=== PATIENT | female | born 1940 | race Two or more races ===

== ENCOUNTER 2022-09-16 15:12 | Inpatient (IN) | payer MEDICARE, OTHER ==
[~2022-09-16] VITALS: Ht 152.4 cm; Wt 74.8 kg
[~2022-09-16 15:12] MED LIST: ASPI81TA31 PO; CLOP75TA15 PO; SIMV40TA2 PO
--- NOTE | 2022-09-16 15:35 | NUR ---
Pt ambulatory to room 1A, family with pt.
--- NOTE | 2022-09-16 16:06 | NUR ---
PT IS IN ROOM #1A. DR CHAPPELL EVALUATED THE PT.
[2022-09-16 16:10] LABS: MEAN CORPUSCULAR HEMOGLOBIN 29.9 uug (24.7-32.8); MEAN CORPUSCULAR VOLUME 91.7 fL (75.5-95.3); PLATELET COUNT (AUTO) 215 K/uL (179-408)
[2022-09-16 16:19] LABS: CARBON DIOXIDE 30 mmol/L (21-32); CHLORIDE 105 mmol/L (98-107); CREATININE 1.1 mg/dL (0.6-1.3); GLUCOSE 113 mg/dL (74-106); POTASSIUM 4.2 mmol/L (3.5-5.1); UREA NITROGEN, BLOOD 16 mg/dL (7-18)
[2022-09-16] MEDS ORDERED: IPRATROPIUM BROMIDE 0.5 MG/2.5 ML NEBU ONE (16:39)
[2022-09-16] MEDS ORDERED: ALBUTEROL SULFATE 2.5 MG/3 ML NEBU ONE (16:39)
[2022-09-16] MEDS ORDERED: methylPREDNISolone SOD SUCC 125 MG/2 ML VIAL ONE (16:43)
[2022-09-16] MEDS ORDERED: CEFTRIAXONE /D5W 50ML IVPB **ER PYXIS IV ONE (16:44)
[2022-09-16] MEDS ORDERED: AZITHROMYCIN 500MG/ D5W 250ML IVPB **ER PYXIS ONLY IV ONE (16:44)
[2022-09-16] MEDS ORDERED: IPRATROPIUM BROMIDE 0.5 MG/2.5 ML NEBU NEB ONE (16:45)
[2022-09-16] MEDS ORDERED: AZITHROMYCIN IV 500 MG in IV DEXTROSE 5% 250 ML IV ONE (16:45)
[2022-09-16] MEDS ORDERED: CEFTRIAXONE 1 G in IV DEXTROSE 5% 50 ML IV ONE (16:45)
[2022-09-16] MEDS ORDERED: methylPREDNISolone SOD SUCC 125 MG/2 ML VIAL IV ONE (16:45)
[2022-09-16] MEDS ORDERED: ALBUTEROL SULFATE 2.5 MG/3 ML NEBU NEB ONE (16:45)
[2022-09-16] MEDS ORDERED: REMEDY ESSENTIAL ZINC PASTE 113 GM TP PRN (18:15)
[2022-09-16] MEDS ORDERED: ACETAMINOPHEN 325 MG TABLET PO PRN (18:15)
[2022-09-16] MEDS ORDERED: ONDANSETRON 4 MG/2 ML VIAL IV PRN (18:15)
[2022-09-16] MEDS ORDERED: MAGNESIUM HYDROXIDE 30 ML LIQUID UDC PO PRN (18:15)
[2022-09-16] MEDS ORDERED: FUROSEMIDE 40 MG/4 ML VIAL IV ONE (18:15)
[2022-09-16] MEDS ORDERED: FUROSEMIDE 40 MG/4 ML VIAL ONE (18:17)
[2022-09-16] MEDS: ENOXAPARIN SODIUM 40 MG/0.4 ML DISP.SYRIN SQ SCH (18:20)
--- NOTE | 2022-09-16 21:18 | NUR ---
Transfered to 3rd Tele floor via wheelchair
[2022-09-16 21:50] VITALS: BP 95/41
--- NOTE | 2022-09-16 22:20 | NUR ---
RECEIVED REPORT FROM BASSEM HORNE ER NURSE, PATIENT TRANSFER VIA GURNEY AND COMPLETE ASSESSMENT DONE, DAUGHTER AT BED SIDE.
[2022-09-17] VITALS: BP 102/52
[2022-09-17] MEDS: methylPREDNISolone SOD SUCC 40 MG/ML VIAL IV SCH ×3 (05:17→21:13)
[2022-09-17 06:39] LABS: MEAN CORPUSCULAR HEMOGLOBIN 30.4 uug (24.7-32.8); MEAN CORPUSCULAR VOLUME 91.9 fL (75.5-95.3); PLATELET COUNT (AUTO) 207 K/uL (179-408)
[2022-09-17 07:00] LABS: CREATININE 1.2 mg/dL (0.6-1.3); PHOSPHOROUS 3.8 mg/dL (2.5-4.9); POTASSIUM 4.2 mmol/L (3.5-5.1)
[2022-09-17] MEDS: ENOXAPARIN SODIUM 40 MG/0.4 ML DISP.SYRIN SQ SCH (08:26)
[2022-09-17 11:37] VITALS: BP 138/62
[2022-09-17] MEDS ORDERED: FUROSEMIDE 40 MG/4 ML VIAL IV ONE (13:45)
[2022-09-17] MEDS ORDERED: FURO-152 PO (14:21)
[2022-09-17] MEDS ORDERED: FURO20TA4 PO (14:31)
[2022-09-17] MEDS: CLOPIDOGREL 75 MG TABLET PO SCH (16:01)
[2022-09-17] MEDS: ASPIRIN 81 MG TAB.CHEW PO SCH (16:01)
[2022-09-17] MEDS ORDERED: SENNOSIDES 1 TABLET PO ONE (16:30)
[2022-09-17 16:48] VITALS: BP 123/55
[2022-09-17] MEDS ORDERED: CEFTRIAXONE 1 G in IV DEXTROSE 5% 50 ML IV SCH (17:00)
[2022-09-17 20:20] VITALS: BP 123/55
[2022-09-17] MEDS ORDERED: SIMVASTATIN 40 MG TABLET PO SCH (21:00)
[2022-09-18 00:14] VITALS: BP 125/63
[2022-09-18 04:56] VITALS: BP 126/54
[2022-09-18] MEDS: methylPREDNISolone SOD SUCC 40 MG/ML VIAL IV SCH (05:12)
[2022-09-18 06:25] LABS: HEMATOCRIT 35.2 % (31.2-41.9); MEAN CORPUSCULAR VOLUME 90.6 fL (75.5-95.3); PLATELET COUNT (AUTO) 249 K/uL (179-408)
[2022-09-18 06:37] LABS: CREATININE 1.3 mg/dL (0.6-1.3); PHOSPHOROUS 4.2 mg/dL (2.5-4.9); POTASSIUM 3.8 mmol/L (3.5-5.1)
[2022-09-18] MEDS: ASPIRIN 81 MG TAB.CHEW PO SCH (08:14)
[2022-09-18] MEDS: CLOPIDOGREL 75 MG TABLET PO SCH (08:14)
[2022-09-18] MEDS: ENOXAPARIN SODIUM 40 MG/0.4 ML DISP.SYRIN SQ SCH (08:14)
[2022-09-18 11:36] VITALS: BP 104/51
[2022-09-18 11:56] LABS: *BILIRUBIN,URIN NEGATIVE (NEGATIVE); *BLOOD, URINE 1+ (NEGATIVE); *CLARITY,URINE CLEAR (CLEAR); *COLOR,URINE YELLOW (YELLOW); *KETONES,URINE NEGATIVE (NEGATIVE); *UROBILINOGEN,URINE 0.2 E.U./dl (NORMAL); LEUKOCYTE ESTERASE ,URINE NEGATIVE (NEGATIVE); NITRITE, URINE NEGATIVE (NEGATIVE); PH,URINE 5.5 (5.0-8.0)
[2022-09-18 11:58] LABS: UGLUCOSE 2+ (NEGATIVE)
--- NOTE | 2022-09-18 12:10 | NUR ---
dc orders received noted and carried out.dc heplock per md orders.dc instruction and education given to the pt .pt said she will follow u p with her dr .pt left the facility via private car in stable condition
[2022-09-18 12:46] LABS: BACTERIA,URINE FEW /HPF (NONE SEEN); RBC,URINE 0-3 /HPF (0-3); SQUAMOUS EPITHELIAL CELL,UR MODERATE /HPF (NONE SEEN)
== END 2022-09-18 12:15 | disposition home or self-care (01) | DRG 292 ==
LOC: ER 15:12 → TELE3 17:00
PROVIDERS: ADMIT Nurse Practitioner Acute Care; ATTEND Nurse Practitioner Acute Care
DX: I50.31 Acute diastolic (congestive) heart failure (principal); D68.69 Other thrombophilia; E66.01 Morbid (severe) obesity due to excess calories; E78.5 Hyperlipidemia, unspecified; I25.10 Atherosclerotic heart disease of native coronary artery without angina pectoris; Z79.82 Long term (current) use of aspirin; Z95.0 Presence of cardiac pacemaker; Z20.822 Contact with and (suspected) exposure to COVID-19; Z68.32 Body mass index [BMI] 32.0-32.9, adult
CPT/HCPCS: 36415; 71045; 83735; 84100; 84484; 85025; 87040; 93005; 93307; A4663; G0378; J0456; J0696; J1650; J1940; J2920; J2930; J3590

== ENCOUNTER 2023-07-21 19:24 | Emergency (ER) | payer MEDICARE, OTHER ==
[~2023-07-21] VITALS: Ht 154.9 cm; Wt 68.0 kg
[~2023-07-21 19:24] MED LIST changes: +FURO20TA4 PO
[2023-07-21] MEDS ORDERED: EZET10TA15 PO (19:56)
[2023-07-21] MEDS ORDERED: MULT-596 PO (19:56)
[2023-07-21] MEDS ORDERED: CLOP75TA33 PO (19:56)
[2023-07-21] MEDS ORDERED: ROSU40TA PO (19:56)
[2023-07-21] MEDS ORDERED: ALLO100T56 PO (19:56)
[2023-07-21] MEDS ORDERED: LOSA50TA39 PO (19:56)
[2023-07-21 20:18] VITALS: BP 122/74; O2SAT 95
== END 2023-07-21 19:50 | disposition home or self-care (01) ==
LOC: ER 19:27
DX: E78.5 Hyperlipidemia, unspecified (principal); Z76.0 Encounter for issue of repeat prescription; Z95.0 Presence of cardiac pacemaker; Z79.899 Other long term (current) drug therapy; Z79.01 Long term (current) use of anticoagulants
CPT/HCPCS: A4663